=== PATIENT | female | born 1960 | race Caucasian/White ===

== ENCOUNTER 2017-01-08 17:58 | Emergency (ER) | payer OTHER ==
[~2017-01-08] VITALS: Ht 160 cm; Wt 63.5 kg
[2017-01-08 18:04] VITALS: BP_SYST 125
[2017-01-08 18:41] LABS: CALCIUM 8.9 mg/dL (8.4-11.0); CREATININE 0.81 mg/dL (0.55-1.30); POTASSIUM 3.6 mmol/L (3.5-5.1)
[2017-01-08 19:35] VITALS: BP_SYST 105
== END 2017-01-08 19:35 | disposition home or self-care (01) ==
LOC: SED 17:58
DX: E11.649 Type 2 diabetes mellitus with hypoglycemia without coma (principal)
CPT/HCPCS: 36415; 80048; 82962; 99283

== ENCOUNTER 2020-02-06 04:35 | Emergency (ER) | payer OTHER ==
--- NOTE | 2020-02-06 05:30 | NUR ---
Pt did not want to wait. Patient left without being seen. No further treatment provided. ER MD aware
== END 2020-02-06 05:30 | disposition left against medical advice (07) ==
LOC: SED 04:35
DX: M25.532 Pain in left wrist (principal)

== ENCOUNTER 2020-07-25 14:37 | Emergency (ER) | payer OTHER ==
[~2020-07-25] VITALS: Ht 160 cm; Wt 68.0 kg
[2020-07-25 15:15] VITALS: BP_SYST 143
[2020-07-25] MEDS ORDERED: DEXAMETHASONE SOD PHOSPHATE 10 MG/ML VIAL IM ONE (16:15)
[2020-07-25] MEDS ORDERED: KETOROLAC TROMETHAMINE 60 MG/2 ML VIAL IM ONE (16:15)
[2020-07-25] MEDS ORDERED: IBUP-1971 PO (16:48)
[2020-07-25] MEDS ORDERED: TRAM50TA2 PO (16:48)
[2020-07-25 17:05] VITALS: BP_SYST 134
== END 2020-07-25 17:05 | disposition home or self-care (01) ==
LOC: SED 14:37
DX: M25.531 Pain in right wrist (principal); E11.9 Type 2 diabetes mellitus without complications
CPT/HCPCS: 96372; 99284

== ENCOUNTER 2023-03-16 23:05 | Emergency (ER) | payer OTHER ==
[~2023-03-16] VITALS: Ht 160 cm; Wt 69.4 kg
[~2023-03-16 23:05] MED LIST: IBUP-1971 PO
[2023-03-16 23:12] VITALS: BP_SYST 136; PULSE 86; RESP 16; TEMP 97.8; O2SAT 98
[2023-03-17] MEDS ORDERED: PROPOFOL 200MG/ 20ML VIAL (DIPRIVAN) IV ONE (00:30)
[2023-03-17] MEDS ORDERED: HYDROcodone/ACETAMIN 10-325 MG TAB PO ONE (00:30)
[2023-03-17] MEDS ORDERED: ONDANSETRON HCL 4 MG/2 ML VIAL IVP ONE (00:30)
[2023-03-17] MEDS ORDERED: MORPHINE 4 MG INJ. 4 MG/ML VIAL IVP ONE (00:30)
[2023-03-17] MEDS ORDERED: IBUP-1969 PO (01:45)
[2023-03-17] MEDS ORDERED: HYDR-3917 PO ×2 (01:46→01:50)
[2023-03-17 02:30] VITALS: BP_SYST 133; PULSE 76; RESP 23; TEMP 97.1; O2SAT 97
== END 2023-03-17 02:30 | disposition home or self-care (01) ==
LOC: SED 23:05
DX: S52.592A Other fractures of lower end of left radius, initial encounter for closed fracture (principal); S60.211A Contusion of right wrist, initial encounter; Z79.899 Other long term (current) drug therapy; W21.00XA Struck by hit or thrown ball, unspecified type, initial encounter; Y93.73 Activity, racquet and hand sports; Y92.89 Other specified places as the place of occurrence of the external cause; Y99.8 Other external cause status
CPT/HCPCS: 25605; 73110; 99152; 99285; 73100; 96374; 96375; J2405; J2704; J2270